=== PATIENT | male | born 1960 | race Caucasian/White ===

== ENCOUNTER 2019-05-26 12:46 | Outpatient (CLI) | payer OTHER | END 2019-05-26 12:47 | disposition home or self-care (01) | LOC: ULT 12:46 | PROVIDERS: ATTEND Internal Medicine | DX: R01.1 Cardiac murmur, unspecified (principal); I51.7 Cardiomegaly; I08.1 Rheumatic disorders of both mitral and tricuspid valves | CPT/HCPCS: 93306 ==

== ENCOUNTER 2019-06-06 06:20 | Day surgery (SDC) | payer OTHER ==
[2019-06-05 13:43] VITALS: BMI 25.7
[2019-06-06] MEDS ORDERED: PROPOFOL 40 ML ONE (08:14)
--- NOTE | 2019-07-08 17:49 | OP ---
DATE OF PROCEDURE: 06/06/2019 PREPROCEDURE DIAGNOSIS: Severe MR. POSTPROCEDURE DIAGNOSIS: Severe prolapse of the anterior mitral leaflet. PROCEDURE PERFORMED: Transesophageal echocardiogram. DESCRIPTION OF PROCEDURE: The patient was consented for the procedure. I discussed the procedure in full detail with the patient. Conscious sedation performed with propofol. Anesthesia present during the case. The probe passed easily into esophagus. FINDINGS: Overall LVEF estimated at 55% to 60%. There is severe mitral valve prolapse of the anterior mitral leaflet. The left atrium is well visualized. Left atrial appendage also well visualized with no mass or vegetation. The RA and RV are normal size and function with normal functioning tricuspid valve. Aortic valve also has three leaflets with normal function. IMPRESSION: 1. Overall LVEF 55% to 60%. 2. Severe mitral valve prolapse of the anterior leaflet. 3. No mass or vegetation present. Job ID: [id number]
== END 2019-06-06 09:48 | disposition home or self-care (01) ==
LOC: CCL 06:20
PROVIDERS: ATTEND Internal Medicine Cardiovascular Disease
PROC: B24BZZ4 Ultrasonography of Heart with Aorta, Transesophageal (ICD-10-PCS; principal; 2019-06-06)
DX: I34.1 Nonrheumatic mitral (valve) prolapse (principal); F41.9 Anxiety disorder, unspecified; G47.00 Insomnia, unspecified; Z79.899 Other long term (current) drug therapy
CPT/HCPCS: 93312; J2704